=== PATIENT | female | born 1970 | race Caucasian/White ===

== ENCOUNTER 2017-01-14 19:13 | Outpatient (CLI) | payer OTHER ==
[2017-01-14 20:13] LABS: #Basophils 0.1 thou/uL (0.0-0.2); #Eosinphils 0.1 thou/uL (0.0-0.7); #Lymphocytes 2.6 thou/uL (1.20-3.40); #Monocytes 0.7 thou/uL (0.11-0.59); #Neutrophils 9.5 thou/uL (1.40-6.50); %Basophils 0.9 % (0.0-1.0); %Eosinophils 0.7 % (0.0-10.0); %Lymphocytes 20.2 % (21.0-51.0); %Neutrophils 73.2 % (42.0-75.0); Hemoglobin 14.4 g/dL (12.0-16.0); Mean Corpuscular HGB CONC 34.6 g/dL (32.0-36.0); Mean Corpuscular Volume 92.4 fl (81.0-99.0); Mean Platelet Volume 6.6 fL (7.4-10.4); Platelet Count 341 thou/uL (130-400); RBC Distribution Width 12.7 % (11.5-14.5); Red Blood Cell (RBC) Count 4.49 mill/uL (4.20-5.40); White Blood Cell (WBC) Count 12.9 thou/uL (4.8-10.8)
[2017-01-14 20:30] LABS: ALT (SGPT) 19 U/L (8-55); AST (SGOT) 20 U/L (5-34); Albumin 3.8 g/dL (3.5-5.0); Alkaline Phosphatase 123 U/L (40-150); Anion Gap 14 mmol/L (10-20); BUN (Urea Nitrogen) 10 mg/dL (7.0-18.7); Bilirubin, Total 0.4 mg/dL (0.2-1.2); CRP (Inflammatory) Less than 0.50 mg/dL (= or < 0.5); Calc. Creatinine Clearance 0 mL/min (70-130); Carbon Dioxide 24 mmol/L (22-29); Chloride 105 mmol/L (98-107); Estimated GFR-MDRD 85; Globulin 2.8 g/dL (2.4-3.5); Glucose 99 mg/dL (70-105); Potassium 3.7 mmol/L (3.5-5.1); Protein, Total 6.6 g/dL (6.0-8.3); Sodium 139 mmol/L (136-145)
[2017-01-17 08:15] LABS: Antinuclear AB Negative (Negative)
== END 2017-01-14 19:14 | disposition home or self-care (01) ==
LOC: MADLAB 19:13
PROVIDERS: ATTEND Internal Medicine Rheumatology
DX: M25.50 Pain in unspecified joint (principal); E55.9 Vitamin D deficiency, unspecified
CPT/HCPCS: 36415; 80053; 82306; 85025; 85652; 86038; 86140; 86200; 86256; 86430; 86812

== ENCOUNTER 2017-06-17 18:23 | Outpatient (CLI) | payer OTHER ==
--- NOTE | 2017-06-17 18:55 | RAD ---
TWO VIEW CHEST: 06/17/17 HISTORY: Elevated C-reactive protein. COMPARISON: 05/23/15. Lungs appear clear. Heart and mediastinum unremarkable. Osseous structures are unremarkable. There is an azygos fissure again noted. IMPRESSION: Unremarkable chest. No interval change. POS: [facility]
--- NOTE | 2017-06-17 19:36 | RAD ---
SI JOINTS: 06/17/17 Three views. HISTORY: SI joint pain. SI joints are normally maintained and appear symmetric. No abnormal sclerosis identified. No lytic le carmen seen. IMPRESSION: Unremarkable SI joints. POS: [facility]
== END 2017-06-17 18:24 | disposition home or self-care (01) ==
LOC: MADRAD 18:23
PROVIDERS: ATTEND Internal Medicine Rheumatology
DX: M53.3 Sacrococcygeal disorders, not elsewhere classified (principal); R79.82 Elevated C-reactive protein (CRP)
CPT/HCPCS: 71046; 72202

== ENCOUNTER 2020-06-24 10:51 | Emergency (ER) | payer OTHER ==
--- NOTE | 2020-06-24 11:16 | CT ---
Exam: Head CT without contrast HISTORY: Altered mental status COMPARISON: none FINDINGS: Hemorrhage: No intraparenchymal hemorrhage or extra-axial hematoma. Brain parenchyma: Cortical mitchell-white matter differentiation is preserved. No mass effect or midline shift. Basilar cisterns are patent. Ventricular system: Ventricles and sulci are patent and symmetric. Calvarium: Intact. Sinuses and mastoid air cells: Adequate aeration. IMPRESSION: No acute intracranial process.
[2020-06-24 11:22] LABS: INR-International Normal Ratio 0.8; PTT 30.3 sec (22.9-36.1); Prothrombin Time 11.7 sec (12.0-14.7)
[2020-06-24 11:30] LABS: Lymphocytes 13 % (21-51); MDiff Complete? YES; Mean Corpuscular HGB CONC 32.8 g/dL (32.0-36.0); Mean Corpuscular Hemoglobin 29.2 pg (27.0-31.0); Mean Corpuscular Volume 89.1 fL (78.0-98.0); Mean Platelet Volume 6.2 fL (7.4-10.4); Monocytes 7 % (0-10); Myelocyte 1 % (0-0); Neutrophil 58 % (42-75); Platelet Count 386 thou/uL (130-400); Platelet Morphology Comment Appears Adequate; RBC Distribution Width 12.3 % (11.5-14.5); RBC Morphology Normal; Reactive Lymphocytes 21 % (0-10); Red Blood Cell (RBC) Count 5.48 mill/uL (4.20-5.40); White Blood Cell (WBC) Count 12.4 thou/uL (4.8-10.8)
[2020-06-24 11:34] LABS: ALT (SGPT) 32 U/L (8-55); AST (SGOT) 23 U/L (5-34); Albumin 4.3 g/dL (3.5-5.0); Alkaline Phosphatase 164 U/L (40-110); Anion Gap 17 mmol/L (10-20); BUN (Urea Nitrogen) 11 mg/dL (9.8-20.1); Bilirubin, Total 0.4 mg/dL (0.2-1.2); CK (CPK) 87 U/L (29-168); Calc. Creatinine Clearance 0 mL/min (70-130); Calcium 9.2 mg/dL (7.8-10.44); Carbon Dioxide 23 mmol/L (22-29); Chloride 103 mmol/L (98-107); Globulin 3.1 g/dL (2.4-3.5); Glucose 107 mg/dL (70-105); Potassium 3.7 mmol/L (3.5-5.1); Protein, Total 7.4 g/dL (6.0-8.3); Sodium 139 mmol/L (136-145)
--- NOTE | 2020-06-24 11:46 | CT ---
EXAM: CT ANGIOGRAM OF THE HEAD INDICATION: Altered mental status COMPARISON: None TECHNIQUE: CT angiogram of the head are performed in the axial plane. Three-dimensional reformatted i mages are submitted for interpretation. FINDINGS: CTA OF THE HEAD WITH AND WITHOUT CONTRAST: POSTCONTRAST CT OF BRAIN: Pathologic enhancement: No pathologic enhancement the brain. CTA OF THE BRAIN: Intracranial internal carotid arteries:Symmetric enhancement and luminal diameter. No significant pablo nosis. Minimal atherosclerosis of the right cavernous sinus and right paraclinoid segment Anterior circulation: Symmetric enhancement and luminal diameter the A1 segments, A2 segments, M1 seg ments and proximal MCA branches Intracranial vertebral arteries: Appropriate enhancement and luminal diameter. Visualized height emmanuel ry origins are normal. Posterior circulation: Both vertebral arteries supply normal caliber basilar artery. Appropriate enha ncement and luminal diameter bilateral feet segments. Incidentals: Left maxillary sinus disease. IMPRESSION: 1. No hemodynamically significant stenosis, occlusion or aneurysmal formation.
[2020-06-24 11:52] LABS: CKMB 1.5 ng/mL (0-6.6)
[2020-06-24 12:03] LABS: CKMB 1.6 ng/mL (0-6.6)
--- NOTE | 2020-06-24 12:14 | RAD ---
Exam: Chest one view HISTORY:Altered mental status Comparison: 06/17/2017 FINDINGS: Cardiac silhouette: Normal Aorta: Unremarkable Pulmonary vessels: Normal Costophrenic angles: Clear LUNGS: No masses or consolidation. Pneumothorax: None Osseous abnormalities: None IMPRESSION: No acute cardiopulmonary process.
[2020-06-24] MEDS ORDERED: Aspirin Chewable 81 MG TAB ONE (12:25)
[2020-06-24] MEDS ORDERED: Sodium Chloride 0.9% 100 ML BAG ONE (12:52)
[2020-06-24] MEDS ORDERED: Iopamidol 370 76% 125 ML VIAL FS ONE (12:58)
== END 2020-06-24 13:50 | disposition short-term general hospital (02) ==
LOC: MADERS 10:51
DX: G45.9 Transient cerebral ischemic attack, unspecified (principal); R77.8 Other specified abnormalities of plasma proteins; F17.210 Nicotine dependence, cigarettes, uncomplicated; Z79.899 Other long term (current) drug therapy
CPT/HCPCS: 0042T; 70450; 70496; 71045; 80053; 82550; 82553; 83880; 84484; 85025; 85610; 85730; 93005; 99406; J3490; Q9967